=== PATIENT | female | born 1985 | race Caucasian/White ===

== ENCOUNTER 2017-06-22 05:38 | Inpatient (IN) | payer OTHER ==
[2017-06-22 05:33] LABS: RPR Titer ND
[~2017-06-22 05:38] MED LIST: BUTORPHANOL 1 MG/ML INJ IV PRN; CARBOPROST TROME 250 MCG/ML IM PRN; METHYLERGONOVINE 0.2MG/ML AMP IM PRN; OXYTOCIN/LR 20 UNIT/1,000 ML BAG IV SCH; PROMETHAZINE 25 MG/ML VIAL IM PRN; Ringers Lactate 1,000 ML IV PRN; Ringers Lactate 1,000 ML IV SCH
[2017-06-22 05:56] LABS: Absolute Lymphocytes (CBC) 2.8 K/uL (0.7-4.9); Absolute Neutrophil 10.9 K/uL (1.8-8.0); Basophils % 0.4 % (0-1.3); Eosinophils % 1.6 % (0-4.4); Hematocrit 39.2 % (36.0-45.0); Lymphocytes % 18.5 % (15.3-44.8); MCH 31.9 pg (27.0-35.0); MCV 90.5 fL (80-100); MPV 7.8 fL (7.6-11.3); RBC Red Blood Cell Count 4.33 M/uL (3.86-4.86)
[2017-06-22 06:00] LABS: Urine Appearance CLEAR; Urine Bilirubin NEGATIVE (NEG); Urine Blood NEGATIVE (NEG); Urine Color YELLOW; Urine Glucose NEGATIVE (NEG); Urine Protein NEGATIVE (NEG); Urine Urobilinogen 0.2 mg/dL (0.2-1.0); Urine pH 6.5 (5.0-7.0)
[2017-06-22 06:02] LABS: Urine Microscopic Reflex ORDER UMIC
[2017-06-22 06:06] VITALS: BMI 34.2
[2017-06-22 06:23] LABS: Urine Bacteria <20 /HPF (<20); Urine RBC <5 /HPF (NONE SEEN)
[2017-06-22 06:24] LABS: Urine Culture Reflex Order NOT NEEDED
[2017-06-22] MEDS ORDERED: MEPERIDINE HCL 25 MG/0.5 ML IV ONE (07:30)
[2017-06-22] MEDS ORDERED: MIDAZOLAM HCL 2 MG/2 ML INJ IV ONE (07:30)
[2017-06-22] MEDS ORDERED: LIDOCAINE 2% 20 ML MDV IV ONE (07:31)
[2017-06-22] MEDS ORDERED: IBUPROFEN 200 MG TAB PO PRN (09:27)
[2017-06-22] MEDS ORDERED: DIPHENHYDRAMINE 25 MG TAB/CAP PO PRN (09:27)
[2017-06-22] MEDS ORDERED: DOCUSATE NA/SENNA CONC 1 TAB PO PRN (09:27)
[2017-06-22] MEDS ORDERED: Oxycodone HCl/Acetaminophen 1 TAB TAB PO PRN ×2 (09:27)
[2017-06-22] MEDS ORDERED: BISACODYL 10 MG RECTAL SUPP RECT PRN (09:27)
[2017-06-22] MEDS ORDERED: ACETAMINOPHEN 500 MG TAB PO PRN (09:27)
[2017-06-22] MEDS ORDERED: OXYTOCIN/LR 20 UNIT/1,000 ML BAG IV SCH (10:00)
[2017-06-22] MEDS ORDERED: CEFAZOLIN 2 GM in NA CHLORIDE 0.9% 100 ML IVPB ONE (10:24)
--- NOTE | 2017-06-22 13:45 | PREOPHP ---
Date of Admission: 06/22/2017 A 32-year-old, 4, para 3, Rh positive, immune to Rubella. Negative beta strep scr een, 39 weeks, 4.5 cm, vertex well applied, -1 to 0 station. Rupture of membranes, clear fluid. Con tracting regularly. She is going natural. Anticipate relatively rapid labor once we get into the ac tive phase. MORE/ADONIS Voice ID: [id number]
[2017-06-22] MEDS ORDERED: Rho(D) IG (HUMAN) 300 MCG SYR IM ONE (14:20)
--- NOTE | 2017-06-22 21:14 | OP ---
Surgeon: Dangelo Calixto MD A 32-year-old female, 4, para 3, 39 weeks, 4 to 4.5 cm on admission. Rupture of membranes, c lear fluid. The patient went rapidly thereafter using Lamaze breathing techniques. Second stage of 10 minutes or less. Spontaneous vaginal delivery of a 6 pound, 14 ounce female, Apgars 9 and 9. No episiotomy. No laceration. Placenta though partially detached then the patient started bleeding selwyn rly significantly, so manual removal was performed. Uterus intact and no retained products after man ual removal. A 2 g of Ancef ordered for prophylaxis. Estimated blood loss 350-400 cc. Rh negative, immune to Rubella. Negative beta-strep screen. Tolerated all procedures well. Final Diagnoses: 1.Term intrauterine . 2.Vaginal delivery. 3.Manual removal of the placenta. 4.Ancef for prophylaxis. MORE/ADONIS Voice ID: [id number] Report ID: [id number]
[2017-06-22 22:54] LABS: RPR (Rapid Plasma Reagin) NON-REACT (NON-REACT)
[2017-06-23 07:13] VITALS: BP 126/78; TEMP 98.3
--- NOTE | 2017-06-24 05:20 | DS ---
Date of Discharge: 06/23/2017 Hospital Course: A 32-year-old 4, para 3, 39 weeks, 4.5 cm on admission, ruptured membranes, went rapidly to complete. Very short second stage of 10 minutes or less. Spontaneous vaginal deliv erika of a 6-pound 14-ounce female, Apgars 9 and 9. No episiotomy. No lacerations. However the place nta was partially detached and there was significant bleeding at first, so the placenta was removed m anually. A 2 g of Ancef given for prophylaxis. Estimated blood loss 350-400 cc. , the pa abby has remained afebrile. She is ambulating and voiding. Lochia is normal. No problems reported . She will be dismissed later this morning to report back to my office in 6 weeks for followup, to r eport any temperature elevation at 100 degrees or greater, severe pain, heavy bleeding, or any other type of abnormalities. Dismissed with tramadol for analgesia, although she may prefer to take Motrin or Tylenol instead. She is Rh negative, the baby is Rh positive, and the patient has received RhoGA M. Final Diagnoses: Term intrauterine . Spontaneous vaginal delivery. Manual removal of the placenta. Prophylaxis given. Rh negative. RhoGAM administered. MORE/ADONIS Voice ID: [id number] Report ID: [id number]
[2017-06-24 12:35] LABS: HBsAG Nonreactive (Nonreactive)
== END 2017-06-23 11:40 | disposition home or self-care (01) | DRG 767 ==
LOC: 2ND-WC 05:38
PROVIDERS: ADMIT Specialist; ATTEND Specialist
PROC: 10907ZC Drainage of Amniotic Fluid, Therapeutic from Products of Conception, Via Natural or Artificial Opening (ICD-10-PCS; principal; 2017-06-22)
PROC: 10D17Z9 Manual Extraction of Products of Conception, Retained, Via Natural or Artificial Opening (ICD-10-PCS; 2017-06-22)
PROC: 10E0XZZ Delivery of Products of Conception, External Approach (ICD-10-PCS; 2017-06-22)
PROC: 3E0234Z Introduction of Serum, Toxoid and Vaccine into Muscle, Percutaneous Approach (ICD-10-PCS; 2017-06-22)
DX: O43.893 Other placental disorders, third trimester (principal); Z3A.39 39 weeks gestation of pregnancy; Z37.0 Single live birth
CPT/HCPCS: 36415; 81003; 81015; 85025; 85461; 86592; 86850; 86900; 86901; 87340; J0690; J2175; J2210; J2250; J2590; J2790